=== PATIENT | male | born 1945 | race Caucasian/White ===

== ENCOUNTER 2017-04-16 07:26 | Inpatient (IN) | payer OTHER, BC ==
[~2017-04-16] VITALS: Ht 177.8 cm; Wt 59.9 kg
[2017-04-16 07:26] VITALS: BP 127/92
[~2017-04-16 07:26] MED LIST: AMLODIPINE BESYL5 MG; AMLODIPINE BESYL5 MG PO; ARIXTRA SUBQ; CEPASTAT CHERR18 TA2 PO; CIPRO250 MG/51; DILAUDID; HEPARIN 1,100 UNIT/1 SUBQ; LEVAQUIN 500 M500 M2 PO; LEVOTHYROXIN0.125 M1; LEVOTHYROXINE 0.1 MG PO; LEVOTHYROXINE0.05 MG PO; MUCINEX600 MG PO; NORCO 5-325 TA1 EACH PO; OSELB75; PRADAXA150 MG PO; PSEUDOEPHEDRINE60 M1 PO; VOTRIENT200 MG PO
[2017-04-16 07:54] LABS: URINE BILIRUBIN NEGATIVE (Negative); URINE BLOOD 3+ (Negative); URINE COLOR YELLOW; URINE GLUCOSE-RANDOM* NEGATIVE (Negative); URINE KETONES NEGATIVE (Negative); URINE LEUKOCYTES-REFLEX 1+ (Negative); URINE PROTEIN (DIPSTICK) NEGATIVE (Negative); URINE SPECIFIC GRAVITY <= 1.005 (1.003-1.035); URINE UROBILINOGEN 0.2 E.U./dl (0.2-1.0)
[2017-04-16 08:05] LABS: CASTS None Seen /LPF (None Seen); CRYSTALS None Seen /LPF (None Seen); SQUAMOUS 0-3 Few /LPF (0-3); URINE RBC 3-10 Few /HPF (0-2)
[2017-04-16 08:06] LABS: URINE WBC-REFLEX >25 Many /HPF (0-5)
[2017-04-16 09:33] LABS: HEMATOCRIT 34.3 % (42.0-52.0); HEMOGLOBIN 11.4 gm/dL (14.0-18.0); MCH 27.9 pg (26.0-34.0); MCHC 33.2 g/dL (28.0-37.0); MCV 84.2 fL (80.0-100.0); PLATELET COUNT 171 thou/uL (150-400); RBC 4.08 mil/uL (4.50-6.00); RDW 20.1 % (10.5-14.5); WBC 3.9 thou/uL (4.0-11.0)
[2017-04-16 09:34] LABS: MANUAL DIFF YES
[2017-04-16 09:41] LABS: CALCIUM 8.6 mg/dL (8.5-10.1); CREATININE 1.3 mg/dL (0.7-1.3)
[2017-04-16 09:45] LABS: ALBUMIN 3.5 g/dL (3.4-5.0); TOTAL BILIRUBIN 0.3 mg/dL (<0.1-1.0); TOTAL PROTEIN 7.4 g/dL (6.4-8.2)
[2017-04-16 09:51] LABS: INR 2.1; PROTIME 21.8 Seconds (9.3-11.4)
[2017-04-16 10:48] LABS: TOTAL CELL COUNT 100
[2017-04-16 10:51] LABS: ANISOCYTOSIS 2+; OVALOCYTES OCCASIONAL
[2017-04-16 11:46] VITALS: BP 127/92
[2017-04-16] MEDS ORDERED: COUMADIN 3 MG TA3 M1 PO (12:18)
[2017-04-16] MEDS ORDERED: NEURONTIN 300300 M1 PO (12:19)
[2017-04-16 13:06] VITALS: BP 140/84
[2017-04-16 16:17] VITALS: BP 142/85
[2017-04-16 20:17] VITALS: BP 135/80
[2017-04-17 04:36] VITALS: BP 136/82
[2017-04-17 04:57] LABS: PROTIME 20.8 Seconds (9.3-11.4)
[2017-04-17 08:40] VITALS: BP 140/87
[2017-04-17] MEDS ORDERED: HYDROCODON-ACE1 EAC7 PO (10:27)
[2017-04-17] MEDS ORDERED: LEVAQUIN 500 M500 M4 PO (10:28)
[2017-04-17] MEDS ORDERED: SENOKOT-S1 TA1 PO (10:29)
[2017-04-17] MEDS ORDERED: FLOMAX0.4 MG PO (10:32)
[2017-04-17 12:47] VITALS: BP 140/87
== END 2017-04-17 13:45 | disposition home or self-care (01) | DRG 690 ==
LOC: ER 07:26 → EROBS 11:06 → 4S 11:06
PROVIDERS: Emergency Medicine; Hospitalist
DX: N30.90 Cystitis, unspecified without hematuria (principal); C67.9 Malignant neoplasm of bladder, unspecified; K59.00 Constipation, unspecified; N40.0 Benign prostatic hyperplasia without lower urinary tract symptoms; Z90.5 Acquired absence of kidney; Z87.891 Personal history of nicotine dependence; Z82.49 Family history of ischemic heart disease and other diseases of the circulatory system; Z91.041 Radiographic dye allergy status; Z92.21 Personal history of antineoplastic chemotherapy
CPT/HCPCS: 10195

== ENCOUNTER → 2017-10-02 | Outpatient (CLI) | payer OTHER, BC ==
[~2017-10-02] MED LIST changes: +COUMADIN 3 MG TA3 M1 PO; +FLOMAX0.4 MG PO; +HYDROCODON-ACE1 EAC7 PO; +LEVAQUIN 500 M500 M4 PO; +NEURONTIN 300300 M1 PO; +SENOKOT-S1 TA1 PO
== END ==
LOC: ULTRA 12:12
DX: I26.99 Other pulmonary embolism without acute cor pulmonale (principal)